=== PATIENT | male | born 1995 | race Caucasian/White ===

== ENCOUNTER 2022-10-30 15:25 | Inpatient (IN) | payer OTHER ==
[~2022-10-30] VITALS: Ht 177.8 cm; Wt 93.7 kg
[2022-10-30 16:29] LABS: HEMATOCRIT 45.5 % (42.0-52.0); HEMOGLOBIN 15.2 g/dl (13.5-17.5); MEAN CORPUSCULAR HEMOGLOBIN 30.1 pg (27.0-33.0); MEAN CORPUSCULAR HGB CONC 33.4 g/dl (32.0-36.5); MEAN CORPUSCULAR VOLUME 90.1 fl (80.0-96.0); PLATELET COUNT, AUTOMATED 215 10^3/uL (150-450); RED BLOOD COUNT 5.05 10^6/uL (4.30-6.10); WHITE BLOOD COUNT 9.4 10^3/uL (4.0-10.0)
[2022-10-30 16:46] LABS: ETHYL ALCOHOL (ETHANOL) 0.003 % (0.000-0.010)
[2022-10-30 16:47] LABS: BILIRUBIN,DIRECT 0.1 MG/DL (<0.4)
[2022-10-30 16:48] LABS: ACETAMINOPHEN LEVEL < 2.0 UG/ML (10.0-20.0); ALKALINE PHOSPHATASE 136 U/L (46-116); ALT/SGPT 27 U/L (7.0-40); AST/SGOT 27 U/L (<34); BILIRUBIN,TOTAL 0.4 MG/DL (0.3-1.2); BLOOD UREA NITROGEN 16 MG/DL (9-23); CALCIUM LEVEL 9.1 MG/DL (8.5-10.1); CARBON DIOXIDE LEVEL 29 MMOL/L (20-31); CHLORIDE LEVEL 101 MMOL/L (98-107); CREATININE FOR GFR 0.92 MG/DL (0.70-1.30); GLOMERULAR FILTRATION RATE > 60.0 (>60); GLUCOSE, FASTING 89 MG/DL (60-100); SALICYLATE LEVEL < 3.0 MG/DL (<30); SODIUM LEVEL 138 MMOL/L (136-145); TOTAL PROTEIN 7.4 G/DL (5.7-8.2)
[2022-10-30 16:50] LABS: THYROID STIMULATING HORMONE 1.718 uIU/ML (0.55-4.78)
[2022-10-30 17:00] LABS: RSV AMPLIFICATION NEGATIVE (NEGATIVE)
[2022-10-30 17:22] LABS: AMPHETAMINES LEVEL URINE NEGATIVE (NEGATIVE); BENZODIAZEPINES URINE NEGATIVE (NEGATIVE); CANNABINOIDS URINE NEGATIVE (NEGATIVE); METHADONE URINE NEGATIVE (NEGATIVE); OPIATES URINE NEGATIVE (NEGATIVE); PHENCYCLIDINE URINE NEGATIVE (NEGATIVE)
[2022-10-30 17:23] LABS: BARBITURATES URINE NEGATIVE (NEGATIVE); COCAINE METABOLITE URINE NEGATIVE (NEGATIVE)
[2022-10-30] MEDS ORDERED: MAALOX 30 ML SUSP *UDC PO PRN (18:25)
[2022-10-30] MEDS ORDERED: MOM 30ML SUSPENSION UDC PO PRN (18:25)
[2022-10-30] MEDS ORDERED: ACETAMINOPHEN TAB 650MG DOSE (2X325MG) PO PRN (18:25)
[2022-10-30] MEDS ORDERED: traZODone 50 MG TAB PO PRN (18:25)
[2022-10-30] MEDS ORDERED: ACET-897 PO (20:11)
[2022-10-30] MEDS ORDERED: ISOT40CA5 PO (20:11)
[2022-10-30] MEDS ORDERED: FLUT22IN INH (20:11)
[2022-10-30] MEDS ORDERED: MED REC COMMENT (20:13)
[2022-10-30] MEDS ORDERED: HOME MED LIST COMPLETE! XX SCH (20:15)
[2022-10-30 22:04] VITALS: BP 122/78
[2022-10-30] MEDS: FLUTICASONE HFA 220 MCG 12 GM INHALER (FLOVENT) INH SCH (22:07)
[2022-10-31 06:35] VITALS: BP 127/71
[2022-10-31] MEDS: FLUTICASONE HFA 220 MCG 12 GM INHALER (FLOVENT) INH SCH ×2 (07:51→20:10)
[2022-10-31] MEDS: NICOTINE 21MG/24HR 1 EA TRANSDERMAL TD SCH (07:51)
[2022-10-31 16:25] VITALS: BP 126/76
[2022-10-31] MEDS ORDERED: ALBUTEROL 90 MCG/ACT 8GM HFA INHALER INH PRN (17:45)
[2022-11-01 06:30] VITALS: BP 127/66
[2022-11-01] MEDS: NICOTINE 21MG/24HR 1 EA TRANSDERMAL TD SCH (08:04)
[2022-11-01] MEDS: FLUTICASONE HFA 220 MCG 12 GM INHALER (FLOVENT) INH SCH ×2 (08:04→20:34)
[2022-11-01] MEDS: SERTRALINE HCL 25 MG TABLET PO SCH (10:31)
[2022-11-01 19:35] VITALS: BP 143/83
[2022-11-02 06:24] VITALS: BP 119/67
[2022-11-02] MEDS: FLUTICASONE HFA 220 MCG 12 GM INHALER (FLOVENT) INH SCH (08:10)
[2022-11-02] MEDS: SERTRALINE HCL 25 MG TABLET PO SCH ×2 (08:13→10:38)
[2022-11-02] MEDS: NICOTINE 21MG/24HR 1 EA TRANSDERMAL TD SCH (08:13)
[2022-11-02] MEDS ORDERED: SERT-141 PO (09:43)
== END 2022-11-02 14:27 | disposition home or self-care (01) | DRG 881 ==
LOC: M ED 15:25 → M ED INP 18:25 → M PSY 21:13
PROVIDERS: ADMIT Psychiatry & Neurology Psychiatry; ATTEND Psychiatry & Neurology Psychiatry
DX: F32.A Depression, unspecified (principal); R45.851 Suicidal ideations; F43.25 Adjustment disorder with mixed disturbance of emotions and conduct; J45.909 Unspecified asthma, uncomplicated; M19.90 Unspecified osteoarthritis, unspecified site; Z63.8 Other specified problems related to primary support group; Z20.822 Contact with and (suspected) exposure to COVID-19; Z79.899 Other long term (current) drug therapy; Z87.891 Personal history of nicotine dependence